=== PATIENT | male | born 1995 | race Caucasian/White ===

== ENCOUNTER 2017-12-17 08:05 | Emergency (ER) | payer BC ==
[~2017-12-17] VITALS: Ht 188 cm; Wt 118.0 kg
[2017-12-17] MEDS ORDERED: PENI-88 PO (08:40)
[2017-12-17 08:50] VITALS: BP 141/73
== END 2017-12-17 08:51 | disposition home or self-care (01) ==
LOC: ER 08:05
DX: J02.9 Acute pharyngitis, unspecified (principal); R05 Cough
CPT/HCPCS: 99283